=== PATIENT | female | born 1960 | race Caucasian/White ===

== ENCOUNTER 2019-04-27 20:16 | Emergency (ER) | payer BC ==
[~2019-04-27] VITALS: Ht 157.5 cm; Wt 104.3 kg
[2019-04-27 21:39] LABS: Basophils # (auto) 0.1 uL; Eosinophils # (auto) 0 uL; Lymphocytes # (auto) 0.6 uL; Monocytes # (auto) 0.8 uL; Red Cell Distribution Width 17.1 % (11.8-14.3)
[2019-04-27 21:41] LABS: Basophils % (auto) 0.7 % (0.0-2.0); Eosinophils % (auto) 0.2 % (0.0-7.0); Hematocrit 39.8 % (36.0-46.0); Mean Corpuscular Hemoglobin 26.1 pg (28.0-32.0); Mean Corpuscular Hgb Conc. 32.7 g/dL (32.0-36.0); Mean Corpuscular Volume 79.8 fL (80.0-100.0); Monocytes % (auto) 6.6 % (0.0-12.0); Neutrophils # (auto) 10.5 uL; Neutrophils % (auto) 87.5 % (37.0-80.0); Platelet Count (auto) 299 10^3/uL (140-450); Red Blood Cells 4.99 10^6/uL (4.0-5.20)
[2019-04-27 21:45] LABS: Urine Bacteria MANY /hpf (None Seen); Urine Blood 2+ /uL (Negative); Urine Mucus FEW (None Seen); Urine Specific Gravity 1.019 (1.001-1.035); Urine WBC 245 /hpf (0 - 5)
[2019-04-27 22:06] LABS: Alanine Aminotransferase 31 U/L (13-56); Albumin 3.2 g/dL (3.4-5.0); Anion Gap 8 (5-15); Aspartate Aminotransferase 21 U/L (15-37); BUN/Creatinine Ratio 16.7; Blood Urea Nitrogen 15 mg/dL (7-18); Calcium 8.7 mg/dL (8.5-10.1); Carbon Dioxide 22 mmol/L (21-32); Chloride 104 mmol/L (98-107); GFR African American 83 mL/min; GFR Non-African American 69 mL/min; Glucose 166 mg/dL (74-106); Potassium 3.8 mmol/L (3.5-5.1); Sodium 134 mmol/L (136-145)
[2019-04-27 22:10] LABS: Alkaline Phosphatase 100 U/L (45-117); Bilirubin, Total 0.5 mg/dL (0.2-1.0); Total Protein 7.6 g/dL (6.4-8.2)
[2019-04-27 23:30] LABS: Amylase 22 U/L (25-115); Lipase 58 U/L (73-393)
[2019-04-28 00:20] VITALS: BP 130/76
[2019-04-28] MEDS ORDERED: cefTRIAXone SOD 1,000 MG VL ONE (00:26)
[2019-04-28] MEDS ORDERED: cefTRIAXone SOD 1,000 MG VL IM ONE (00:30)
== END 2019-04-28 00:37 | disposition home or self-care (01) ==
LOC: ER 20:21
DX: N39.0 Urinary tract infection, site not specified (principal); K80.20 Calculus of gallbladder without cholecystitis without obstruction
CPT/HCPCS: 36415; 74176; 80053; 81001; 82150; 83690; 84484; 85025; 87086; 87088; 87186; 93005; 96372; 99284; J0696

== ENCOUNTER → 2020-02-11 | Outpatient (CLI) | payer BC | END | disposition home or self-care (01) | LOC: LAB 13:40 | PROVIDERS: ATTEND Obstetrics & Gynecology | DX: N84.1 Polyp of cervix uteri (principal); N85.00 Endometrial hyperplasia, unspecified ==

== ENCOUNTER 2020-10-08 06:57 | Day surgery (SDC) | payer BC ==
[~2020-10-08] VITALS: Ht 162.6 cm; Wt 65.8 kg
[~2020-10-08 06:57] MED LIST: NAPR375T27 PO
[2020-10-08] MEDS ORDERED: ceFAZolin 1GM/50ML 100 ML IV ONE (07:15)
[2020-10-08] MEDS ORDERED: MEPERIDINE HCL (25 MG/ML) 1ML VIAL ONE (08:14)
[2020-10-08] MEDS ORDERED: DexAMETHasone SOD PHOS 10MG/1ML VIAL INJ ONE (08:15)
[2020-10-08] MEDS ORDERED: fentaNYL CITRATE 100 MCG/2 ML VL ONE (08:15)
[2020-10-08] MEDS ORDERED: GLYCOPYRROLATE 0.2 MG/ML 1ML VIAL ONE (08:15)
[2020-10-08] MEDS ORDERED: PROPOFOL 10 MG/ML 20 ML IV ONE (08:15)
[2020-10-08] MEDS ORDERED: ONDANSETRON HCL 4 MG/2 ML VIAL ONE (08:15)
[2020-10-08] MEDS ORDERED: MIDAZOLAM HCL 2MG/2ML 2ml VIAL (1mg/ml) ONE (08:15)
[2020-10-08] MEDS ORDERED: KETOROLAC TROMETH 30 MG/ML 1ML VIAL ONE (08:15)
[2020-10-08] MEDS ORDERED: ePHEDrine SULFATE 50 MG/ML AMP IV ONE (08:28)
[2020-10-08] MEDS ORDERED: METOCLOPRAMIDE HCL 5MG/ml INJ 2ml VIAL IV ONE (08:28)
[2020-10-08] MEDS ORDERED: ONDANSETRON HCL 4 MG/2 ML VIAL IV PRN ×2 (09:15)
[2020-10-08] MEDS ORDERED: HYDROmorphone HCL 2 MG/ML VL IV PRN (09:15)
[2020-10-08] MEDS ORDERED: LACTATED RINGER'S 1,000 ML IV SCH (09:15)
[2020-10-08 09:40] VITALS: BP 122/57
== END 2020-10-08 10:00 | disposition home or self-care (01) ==
LOC: SUR 06:57
PROVIDERS: ATTEND Obstetrics & Gynecology
DX: N85.00 Endometrial hyperplasia, unspecified (principal); M19.90 Unspecified osteoarthritis, unspecified site; I10 Essential (primary) hypertension; Z20.822 Contact with and (suspected) exposure to COVID-19; Z98.890 Other specified postprocedural states; Z98.51 Tubal ligation status; Z79.899 Other long term (current) drug therapy; Z68.34 Body mass index [BMI] 34.0-34.9, adult
CPT/HCPCS: 58558; 86850; 86900; 86901; J0690; J1100; J1885; J2175; J2250; J2405; J2704; J2765; J3010; U0003

== ENCOUNTER 2020-11-25 06:57 | Emergency (ER) | payer BC ==
[~2020-11-25] VITALS: Ht 157.5 cm; Wt 111.1 kg
[2020-11-25] MEDS ORDERED: PIPERACILLIN-TAZOB 3.375GM 100 ML IV ONE (08:00)
[2020-11-25 08:40] LABS: Basophils # (auto) 0.2 10 ^3/uL (0-0.2); Basophils % (auto) 1.5 % (0.0-2.0); Eosinophils # (auto) 0.1 10 ^3/uL (0-0.8); Hematocrit 44.6 % (36.0-46.0); Hemoglobin 15.3 g/dL (12.2-16.2); Lymphocytes % (auto) 16.6 % (10.0-50.0); Mean Corpuscular Hemoglobin 29.3 pg (28.0-32.0); Mean Corpuscular Hgb Conc. 34.2 g/dL (32.0-36.0); Mean Corpuscular Volume 85.8 fL (80.0-100.0); Monocytes # (auto) 0.8 10 ^3/uL (0-1.3); Monocytes % (auto) 6.7 % (0.0-12.0); Neutrophils # (auto) 8.8 10 ^3/uL (1.6-8.6); Neutrophils % (auto) 74.2 % (37.0-80.0); Red Cell Distribution Width 14.8 % (11.8-14.3); White Blood Cell 11.9 10^3/uL (4.4-10.8)
[2020-11-25] MEDS ORDERED: KETOROLAC TROMETH 30 MG/ML 1ML VIAL IV ONE (09:00)
[2020-11-25 09:05] LABS: BUN/Creatinine Ratio 22.2; Calcium 8.5 mg/dL (8.5-10.1); Potassium 4.3 mmol/L (3.5-5.1)
[2020-11-25] MEDS ORDERED: IOHEXOL 300 MG/ML 100ML BOTTLE IJ ONE (09:39)
[2020-11-25] MEDS ORDERED: ONDANSETRON HCL 4 MG/2 ML VIAL IV ONE (12:45)
[2020-11-25] MEDS ORDERED: MORPHINE SULF INJ 2 MG/ML SYRINGE 1ML IV ONE ×2 (12:45→16:45)
[2020-11-25 16:38] VITALS: BP 161/77
== END 2020-11-25 17:13 | disposition short-term general hospital (02) ==
LOC: ER 06:57
DX: K11.21 Acute sialoadenitis (principal); K11.3 Abscess of salivary gland; Z90.89 Acquired absence of other organs; Z98.51 Tubal ligation status
CPT/HCPCS: 36415; 70487; 80048; 83605; 85025; 87040; 96365; 96366; 96375; 96376; 99285; J1885; J2270; J2405; J2543; Q9967

== ENCOUNTER 2025-02-17 07:11 | Inpatient (IN) | payer BC ==
[~2025-02-17] VITALS: Ht 157.5 cm; Wt 59.2 kg
[~2025-02-17 07:11] MED LIST changes: +CYCL-839 PO; +HYDR-4902 PO; +NAPR-957 PO; -NAPR375T27 PO
[2025-02-17 07:25] VITALS: PULSE 96; RESP 13; O2SAT 95
[2025-02-17] MEDS: SODIUM CHLORIDE 0.9% 1,000 ML IV ONE ×2 (07:45→08:09)
--- NOTE | 2025-02-17 07:45 | ED.PDOC ---
History of Present Illness HPI Comments 64F presents to the ER with no prior medical history associated with a chief complaint of generalized weakness. Patient reports on having had generalized weakness associated with body aches since of 02/12/2025. Patient has started to have cold sweats on Sunday and Sunday associated with nausea and vomiting on Sunday. Patient is still having continuous nausea and vomiting this morning which prompted her into going to the ER today. Denies any other symptoms at this time. Denies chills, fever, /D, SOB, CP. No other associated symptoms, modifiers, recent injuries or sick contacts present at this time. Chief Complaint: General Weakness Time Seen by MD: 07:45 Primary Care Provider: ADRIANNA Wang Notes: Nurses Notes, Medications, Allergies Allergies: Coded Allergies: NO KNOWN ALLERGIES (Unverified , 04/27/19) Home Meds Active Scripts Hydrocodone-Acetaminophen (Hydrocodone Bitartrate/AC 5-325 mg) 1 Tab Tab, 1 TAB PO Q6HPRN PRN, #10 TAB as needed for pain Prov:JONAS WINCHESTER [employer]YING [employer] ATTENDANT 07/19/23 Cyclobenzaprine Hcl (Cyclobenzaprine Hcl) 10 Mg Tab, 1 TAB PO Q8HPRN PRN, #15 TAB as needed for muscle spasm Prov:JONAS WINCHESTER [employer]YING [employer] ATTENDANT 07/19/23 Reported Medications Naproxen (Naproxen) 375 Mg Tab, 500 MG PO BID, TAB 10/05/20 Information Source: Patient Mode of Arrival: Wheelchair Severity: Moderate Timing: Days Duration: Since onset, Days Prehospital treatment: None Past Medical History PAST MEDICAL HISTORY: Denies Surgical History: Appendectomy, Tubal Ligation TRANSIT SPECIALIST History: Denies all TRANSIT SPECIALIST Hx Family History Family History: Reviewed,noncontributory to illness, Unknown Social History Smoker: Non-Smoker Alcohol: Denies ETOH Use Drugs: Denies Drug Use Lives In: Home Constitutional: reports: sweats, weakness; denies: chills, diaphoresis, fatigue, fever, malaise, others EENTM: denies: blurred vision, double vision, ear bleeding, ear discharge, ear drainage, ear pain, ear ringing, eye pain, eye redness, hearing loss, mouth pain, mouth swelling, nasal discharge, nose bleeding, nose congestion, nose pain, photophobia, tearing, throat pain, throat swelling, voice changes, others Respiratory: denies: cough, hemoptysis, orthopnea, SOB at rest, shortness of breath, SOB with excertion, stridor, wheezing, others Cardiovascular: denies: chest pain, dizzy spells, diaphoresis, Dyspnea on exertion, edema, irregular heart beat, left arm pain, lightheadedness, palpitations, PND, syncope, others Gastrointestinal: reports: nausea, vomiting; denies: abdomen distended, abdominal pain, blood streaked bowels, constipated, diarrhea, dysphagia, difficulty swallowing, hematemesis, melena, poor appetite, poor fluid intake, rectal bleeding, rectal pain, others Genitourinary: denies: abnormal vagina bleeding, burning, dyspareunia, dysuria, flank pain, frequency, hematuria, incontinence, pain, , vagina discharge, urgency, others Neurological: denies: dizziness, fainting, headache, left sided numbness, left sided weakness, numbness, paresthesia, pre-existing deficit, right sided numbn ess, right sided weakness, seizure, speech problems, tingling, tremors, weakness, others Musculoskeletal: denies: back pain, gout, joint pain, joint swelling, muscle pain, muscle stiffness, neck pain, others Integumetry: denies: bruises, change in color, change in hair/nails, dryness, laceration, lesions, lumps, rash, wounds, others Allergic/Immunocompromised: denies: Difficulty Healing, Frequent Infections, Hives, Itching, others Hematologic/Lymphatic: denies: anemia, blood clots, easy bleeding, easy bruising, swollen glands, others Endocrine: denies: excessive hunger, excessive sweating, excessive thirst, excessive urination, flushing, intolerance to cold, intolerance to heat, unexplained weight gain, unexplained weight loss, others Psychiatric: denies: anxiety, bipolar disorder, depression, hopeless, panic disorder, schizophrenia, sleepless, suicidal, others All Other Systems: Reviewed and Negative Physical Exam General Appearance: Moderate Distress, Normal HEENT: Normal ENT Inspection, Pharynx Normal, TMs Normal Neck: Full Range of Motion, Non-Tender, Normal, Normal Inspection Respiratory: Chest Non-Tender, Lungs Clear, No Accessory Muscle Use, No Respiratory Distress, Normal Breath Sounds Cardiovascular: No Edema, No JVD, No Murmur, No Gallop, Normal Peripheral Pulses, Regular Rate/Rhythm Breast Exam: Deferred Gastrointestinal: No Organomegaly, Non Tender, No Pulsatile Mass, Normal Bowel Sounds, Soft Genitalia: Deferred Pelvic: Deferred Rectal: Deferred Extremities: No calf tenderness, Normal capillary refill, Normal inspection, Normal range of motion, Non-tender, No pedal edema Musculoskeletal : Apperance: Normal Neurologic: Alert, internal salesperson II-XII nml as Tested, No Motor Deficits, Normal Affect, Normal Mood, No Sensory Deficits Cerebellar Function: Normal Reflexes: NOT DONE Skin: Dry, Normal Color, Warm Peripheral Pulses: 3+ Radial (R), 3+ Radial (L) Lymphatic: No Adenopathy Was a procedure done? Was a procedure done?: No EKG EKG : Pulse Rate (adult): 92 [place]: Normal Cardiac Rhythm: NSR Block: None Hypertrophy: None ST: Normal Differential Dx Considerations may include: Anemia Electrolyte imbalance X-Ray, Labs, Meds, VS Vital Signs Date Time Temp Pulse Resp B/P (MAP) Pulse Ox O2 Delivery O2 Flow Rate FiO2 02/17/25 12:00 88 02/17/25 12:00 98.1 90 12 111/62 (78) 96 98.1 02/17/25 10:00 99.4 91 19 100/59 (73) 96 99.4 02/17/25 08:00 92 02/17/25 08:00 99.5 93 19 123/65 (84) 96 99.5 02/17/25 07:45 92 02/17/25 07:28 92 02/17/25 07:25 96 13 95 Room Air* 0 21 02/17/25 07:25 99.5 96 19 119/64 (82) 96 99.5 02/17/25 07:17 97.7 120 17 110/70 95 97.7 Lab Test 02/17/25 08:35 02/17/25 07:44 02/17/25 07:36 02/17/25 07:25 Range/Units Influenza Type A Antigen Negative Negative Influenza Type B Antigen Negative Negative SARS-CoV-2 Antigen (Rapid) Negative NEGATIVE White Blood Count 4.7 4.4-10.8 10^3/uL Red Blood Count 5.09 4.0-5.20 10^6/uL Hemoglobin 15.5 12.2-16.2 g/dL Hematocrit 44.6 36.0-46.0 % Mean Corpuscular Volume 87.6 80.0-100.0 fL Mean Corpuscular Hemoglobin 30.5 28.0-32.0 pg Mean Corpuscular Hemoglobin Concent 34.8 32.0-36.0 g/dL Red Cell Distribution Width 13.2 11.8-14.3 % Platelet Count 204 140-450 10^3/uL Mean Platelet Volume 6.8 L 6.9-10.8 fL Neutrophils (%) (Auto) 92.4 H 37.0-80.0 % Lymphocytes (%) (Auto) 6.7 L 10.0-50.0 % Monocytes (%) (Auto) 0.5 0.0-12.0 % Eosinophils (%) (Auto) 0.1 0.0-7.0 % Basophils (%) (Auto) 0.3 0.0-2.0 % Neutrophils # (Auto) 4.4 1.6-8.6 10 ^3/uL Lymphocytes # (Auto) 0.3 L 0.4-5.4 10 ^3/uL Monocytes # (Auto) 0 0-1.3 10 ^3/uL Eosinophils # (Auto) 0 0-0.8 10 ^3/uL Basophils # (Auto) 0 0-0.2 10 ^3/uL Nucleated Red Blood Cells 0.0 % Sodium Level 142 136-145 mmol/L Potassium Level 3.9 3.5-5.1 mmol/L Chloride Level 103 98-107 mmol/L Carbon Dioxide Level 28 20-31 mmol/L Anion Gap 11 5-15 Blood Urea Nitrogen 12 9-23 mg/dL Creatinine 1.00 0.550-1.02 mg/dL Glomerular Filtration Rate Calc 63 >90 mL/min BUN/Creatinine Ratio 12.0 10.0-20.0 Serum Glucose 109 H 74-106 mg/dL Calcium Level 9.2 8.7-10.4 mg/dL Total Bilirubin 0.8 0.2-1.0 mg/dL Aspartate Amino Transferase (AST) 71 H 13-40 U/L Alanine Aminotransferase (ALT) 43 H 7-40 U/L Alkaline Phosphatase 92 46-116 U/L Troponin I High Sensitivity 4 </=34 ng/L Total Protein 6.8 5.7-8.2 g/dL Albumin 4.2 3.2-4.8 g/dL Hepatitis B Surface Antigen Pending Hepatitis C Antibody Pending Urine Color Colorless Yellow Urine Clarity Turbid H Clear Urine pH 5.5 5.0-9.0 Urine Specific [place] 1.013 1.001-1.035 Urine Protein Trace H Negative Urine Ketones 1+ H Negative Urine Blood 3+ H Negative /uL Urine Nitrite 2+ H Negative Urine Bilirubin Negative Negative Urine Urobilinogen Normal Negative mg/dL Urine Leukocyte Esterase Negative Negative /uL Urine RBC 802 0 - 4 /hpf Urine Microscopic WBC 16 H 0-5 /HPF Urine Squamous Epithelial Cells Few <5 /hpf Urine Bacteria Few H None Seen /hpf Urine Mucus Few None Seen Urine Yeast (Budding) Occasional None Seen /hpf Urine Glucose Normal Normal mg/dL POC Glucose 130 H 70-106 mg/dl Current Medications Medications (Trade) Dose Ordered Sig/Lesvia Route Start Time Stop Time Status Last Admin Sodium Chloride 1,000 ml @ 1,000 mls/hr Q1H ONCE IV 02/17/25 07:45 02/17/25 08:44 DC 02/17/25 07:45 Acetaminophen/ Hydrocodone Bitart ([place] 10/325MG Tab) 1 tab ONCE ONCE PO 02/17/25 08:45 02/17/25 08:46 DC 02/17/25 08:51 Trimethoprim/ Sulfamethoxazole 10 ml/Dextrose 260 ml @ 130 mls/hr ONCE ONCE IV 02/17/25 10:45 02/17/25 12:53 DC 02/17/25 10:45 PROCEDURE(s): CXRP - CHEST PORTABLE IMPRESSION: No acute cardiopulmonary disease. Patient alert. Generalized weakness. Vitals stable. Answering questions. Blood sugar slightly elevated. Establish intravenous access. Was given fluids. Urinalysis shows UTI. Has blood along with infection. Was given Bactrim. Explained to the patient. Continue monitoring. Time of 1ST Reevaluation: 08:15 Reevaluation 1ST: Unchanged Patient Education/Counseling: Diagnosis, Treatment, Prognosis Family Education/Counseling: No Family Present SEPSIS Sepsis Screen Date sepsis recognized/suspect: Feb 17, 2025 Time Sepsis recognized/suspect: 716 Recent Procedure: No On Antibiotic Therapy: No Respiratory Rate >20: No Heart Rate >90: Yes Temp<36 C (96.8 F) or >38.3 C: No SBP <90 or MAP <65 mmHG: No New Acute Mental Status Change: No Is the patient on CPAP, BIPAP,: No Physician Orders Chest Portable (02/17/25 07:36) Yarn Twister (02/17/25 ) Vital Signs Date Time Temp Pulse Resp B/P (MAP) Pulse Ox O2 Delivery O2 Flow Rate FiO2 02/17/25 12:00 88 02/17/25 12:00 98.1 90 12 111/62 (78) 96 98.1 02/17/25 10:00 99.4 91 19 100/59 (73) 96 99.4 02/17/25 08:00 92 02/17/25 08:00 99.5 93 19 123/65 (84) 96 99.5 02/17/25 07:45 92 02/17/25 07:28 92 02/17/25 07:25 96 13 95 Room Air* 0 21 02/17/25 07:25 99.5 96 19 119/64 (82) 96 99.5 02/17/25 07:17 97.7 120 17 110/70 95 97.7 Laboratory Tests Test 02/17/25 07:44 White Blood Count 4.7 10^3/uL (4.4-10.8) Medications Medications Dose Ordered Sig/Lesvia Route Start Time Stop Time Status Last Admin Dose Admin Acetaminophen/ Hydrocodone Bitart 1 tab ONCE ONCE PO 02/17/25 08:45 02/17/25 08:46 DC 02/17/25 08:51 Sodium Chloride 1,000 ml @ 1,000 mls/hr Q1H ONCE IV 02/17/25 07:45 02/17/25 08:44 DC 02/17/25 07:45 Trimethoprim/ Sulfamethoxazole 10 ml/Dextrose 260 ml @ 130 mls/hr ONCE ONCE IV 02/17/25 10:45 02/17/25 12:53 DC 02/17/25 10:45 Departure 1 Departure Time of Disposition: 08:08 Impression: Primary Impression: Sepsis due to urinary tract infection Disposition: ADMITTED INPATIENT Admit to: Med Surg Condition: Guarded Critical Care Note Critical Care Time?: No Stability Stability form required: No Heart Score Heart Score: Heart Score Response (Comments) Value History N/A 0 EKG N/A 0 Age N/A 0 Risk Factors N/A 0 Troponin N/A 0 Total 0 I personally scribed for RAFAEL GAUTAM MD ([email or web address]) on 02/17/25 at 07:45. Electronically submitted by Reyes Monroy ([email or web address]). I personally scribed for RAFAEL GAUTAM MD ([email or web address]) on 02/17/25 at 11:02. Electronically submitted by Eddie Corrales ([email or web address]). RAFAEL GAUTAM MD Feb 17, 2025 07:45
[2025-02-17 08:03] LABS: Hematocrit 44.6 % (36.0-46.0); Hemoglobin 15.5 g/dL (12.2-16.2); Mean Corpuscular Hemoglobin 30.5 pg (28.0-32.0); Mean Corpuscular Volume 87.6 fL (80.0-100.0); Nucleated Red Blood Cells % 0.0 %
[2025-02-17 08:17] LABS: Albumin 4.2 g/dL (3.2-4.8); Alkaline Phosphatase 92 U/L (46-116); Anion Gap 11 (5-15); BUN/Creatinine Ratio 12.0 (10.0-20.0); Bilirubin, Total 0.8 mg/dL (0.2-1.0); Blood Urea Nitrogen 12 mg/dL (9-23); Calcium 9.2 mg/dL (8.7-10.4); Carbon Dioxide 28 mmol/L (20-31); Chloride 103 mmol/L (98-107); Potassium 3.9 mmol/L (3.5-5.1); Sodium 142 mmol/L (136-145); Total Protein 6.8 g/dL (5.7-8.2)
[2025-02-17 08:18] LABS: Alanine Aminotransferase 43 U/L (7-40); Glucose 109 mg/dL (74-106)
--- NOTE | 2025-02-17 08:19 | DVH ---
EXAM: XY CHEST PORTABLE Indication: sob Technique: Single frontal view of the chest was obtained Comparison: None FINDINGS: Lines and Tubes: None Lungs: No focal consolidation. Pleura: No effusion. No pneumothorax. Cardiomediastinal contours: Unremarkable. Atherosclerotic vascular calcifications of the thoracic ao rta are noted. Bones: No acute osseous abnormality. IMPRESSION: No acute cardiopulmonary disease.
[2025-02-17] MEDS: HYDROcodone-ACET 10/325MG TAB PO ONE (08:51)
[2025-02-17 10:28] LABS: Urine Budding Yeast OCCASIONAL /hpf (None Seen); Urine Protein, UAD TRACE (Negative)
[2025-02-17 10:35] LABS: COVID19 ANTIGEN SOFIA FIA NEGATIVE (NEGATIVE)
[2025-02-17] MEDS: SULFAMETH-TRIMETH 80/16MG-ML 10 ML in D5W 5% 250 ML IV ONE (10:45)
[2025-02-17] MEDS ORDERED: DOCUSATE SOD 100 MG CAP PO PRN (13:00)
--- NOTE | 2025-02-17 13:48 | ECG ---
[facility] Test Date: 2025-02-17 Test Time: 07:28:46 Pat Name: VIANCA CRUZ Department: [facility] ED Patient ID: [id number] Room: 0293 Gender: F [employer]: MADHAV : 1960 Requested By: RAFAEL GAUTAM Order Number: [id number] Reading MD: Saurav Faith Measurements Intervals [place] Rate: 92 P: 46 [place]: 161 QRS: 96 QRSD: 100 T: 47 QT: 344 QTc: 426 Interpretive Statements Sinus rhythm Right axis deviation Borderline low voltage, extremity leads Electronically Signed On 02-24-2025 13:16:28 PST by Saurav Faith Please click the below link to view image of tracing.
--- NOTE | 2025-02-17 14:01 | DVHHP2 ---
History of Present Illness Reason for Visit: Generalized weakness History of Present Illness Kiara Perez is a 64-year-old female with past medical history of hypertension, but has been off medication for years since losing 150 pounds. She came to the hospital today due to generalized weakness. States she started not feeling well on evening. She was experiencing body aches and chills. She called off work on Sunday. Over the weekend her symptoms continued and worsened. She began to have fevers and on Sunday she was nauseated and vomited once. Sunday she attempted to go to work but her nausea and vomiting worsened and she was having bilateral low back pain. This morning she came to the hospital due to her symptoms persisting. Cardiovascular: HTN Past Surgical History: Appendectomy, Other (DNC), Tonsillectomy Smoke: No ALCOHOL: rare Drugs: None Lives: with Family Domestic Violence: Neg Review of Systems Constitutional: Yes: Fever, Chills, Sweats, Weakness, Malaise, Other (bodyaches) Eyes: No: Pain, Vision change, Conjunctivae inflammation, Eyelid inflammation, Other, Redness ENT: No: Ear pain, Ear discharge, Nose pain, Nose discharge, Nose congestion, Mouth pain, Mouth swelling, Throat pain, Throat swelling, Other Respiratory: No: Cough, Dry, Shortness of breath, SOB with excertion, Wheezing, Hemoptysis, Pleuritic Pain, Sputum, Wheezing, Other Cardiovascular: No: Chest Pain, Palpitations, Orthopnea, Paroxysmal Noc. Dyspnea, Edema, Lt Headedness, Other Gastrointestinal: Nausea, Vomiting; No: Abdominal Pain, Diarrhea, Constipation, Melena, Hematochezia, Other Genitourinary: No Dysuria, No Frequency, No Incontinence, No Hematuria, No Retention, No Other Musculoskeletal: back pain (bilateral flank pain); No: other, neck pain, shoulder pain, arm pain, hand pain, leg pain, foot pain Skin: No: Rash, Lesions, Jaundice, Bruising, Other Neurological: No: Weakness, Numbness, Incoordination, Change in speech, Confusion, Seizures, Other Allergies: Coded Allergies: NO KNOWN ALLERGIES (Unverified , 04/27/19) Exam Vital Signs Vital Signs Date Time Temp Pulse Resp B/P (MAP) Pulse Ox O2 Delivery O2 Flow Rate FiO2 02/17/25 12:00 88 02/17/25 12:00 98.1 12 111/62 (78) 96 98.1 02/17/25 07:25 Room Air* 0 21 General Appearance: Alert, Oriented X3, Cooperative, moderate distress HEENT: Atraumatic, PERRLA, Other (Mucous membr dry) Respiratory: Clear to auscultation, Normal air movement Cardiovascular: Regular rate, Normal S1, Normal S2, No murmurs Abdominal: Normal bowel sounds, Soft, No tenderness Extremities: No clubbing, No cyanosis, No edema, Normal pulses Skin: No rashes, No breakdown, No significant lesion Neuro: Normal gait, Normal speech, Strength at 5/5 X4 ext Psych/Mental Status: Mental status NL, Mood NL Labs/Xrays Labs Test 02/17/25 08:35 02/17/25 07:44 02/17/25 07:36 02/17/25 07:25 Range/Units Influenza Type A Antigen Negative Negative Influenza Type B Antigen Negative Negative SARS-CoV-2 Antigen (Rapid) Negative NEGATIVE White Blood Count 4.7 4.4-10.8 10^3/uL Red Blood Count 5.09 4.0-5.20 10^6/uL Hemoglobin 15.5 12.2-16.2 g/dL Hematocrit 44.6 36.0-46.0 % Mean Corpuscular Volume 87.6 80.0-100.0 fL Mean Corpuscular Hemoglobin 30.5 28.0-32.0 pg Mean Corpuscular Hemoglobin Concent 34.8 32.0-36.0 g/dL Red Cell Distribution Width 13.2 11.8-14.3 % Platelet Count 204 140-450 10^3/uL Mean Platelet Volume 6.8 L 6.9-10.8 fL Neutrophils (%) (Auto) 92.4 H 37.0-80.0 % Lymphocytes (%) (Auto) 6.7 L 10.0-50.0 % Monocytes (%) (Auto) 0.5 0.0-12.0 % Eosinophils (%) (Auto) 0.1 0.0-7.0 % Basophils (%) (Auto) 0.3 0.0-2.0 % Neutrophils # (Auto) 4.4 1.6-8.6 10 ^3/uL Lymphocytes # (Auto) 0.3 L 0.4-5.4 10 ^3/uL Monocytes # (Auto) 0 0-1.3 10 ^3/uL Eosinophils # (Auto) 0 0-0.8 10 ^3/uL Basophils # (Auto) 0 0-0.2 10 ^3/uL Nucleated Red Blood Cells 0.0 % Sodium Level 142 136-145 mmol/L Potassium Level 3.9 3.5-5.1 mmol/L Chloride Level 103 98-107 mmol/L Carbon Dioxide Level 28 20-31 mmol/L Anion Gap 11 5-15 Blood Urea Nitrogen 12 9-23 mg/dL Creatinine 1.00 0.550-1.02 mg/dL Glomerular Filtration Rate Calc 63 >90 mL/min BUN/Creatinine Ratio 12.0 10.0-20.0 Serum Glucose 109 H 74-106 mg/dL Calcium Level 9.2 8.7-10.4 mg/dL Total Bilirubin 0.8 0.2-1.0 mg/dL Aspartate Amino Transferase (AST) 71 H 13-40 U/L Alanine Aminotransferase (ALT) 43 H 7-40 U/L Alkaline Phosphatase 92 46-116 U/L Troponin I High Sensitivity 4 </=34 ng/L Total Protein 6.8 5.7-8.2 g/dL Albumin 4.2 3.2-4.8 g/dL Urine Color Colorless Yellow Urine Clarity Turbid H Clear Urine pH 5.5 5.0-9.0 Urine Specific [place] 1.013 1.001-1.035 Urine Protein Trace H Negative Urine Ketones 1+ H Negative Urine Blood 3+ H Negative /uL Urine Nitrite 2+ H Negative Urine Bilirubin Negative Negative Urine Urobilinogen Normal Negative mg/dL Urine Leukocyte Esterase Negative Negative /uL Urine RBC 802 0 - 4 /hpf Urine Microscopic WBC 16 H 0-5 /HPF Urine Squamous Epithelial Cells Few <5 /hpf Urine Bacteria Few H None Seen /hpf Urine Mucus Few None Seen Urine Yeast (Budding) Occasional None Seen /hpf Urine Glucose Normal Normal mg/dL POC Glucose 130 H 70-106 mg/dl EXAM: XY CHEST PORTABLE FINDINGS: Lines and Tubes: None Lungs: No focal consolidation. Pleura: No effusion. No pneumothorax. Cardiomediastinal contours: Unremarkable. Atherosclerotic vascular calcifications of the thoracic aorta are noted. Bones: No acute osseous abnormality. IMPRESSION: No acute cardiopulmonary disease. SEPSIS Sepsis Screen Date sepsis recognized/suspect: Feb 17, 2025 Time Sepsis recognized/suspect: 729 Recent Procedure: No On Antibiotic Therapy: No Respiratory Rate >20: No Heart Rate >90: No Temp<36 C (96.8 F) or >38.3 C: No SBP <90 or MAP <65 mmHG: No New Acute Mental Status Change: No Is the patient on CPAP, BIPAP,: No Physician Orders Electrocardigram (02/17/25 07:33) Chest Portable (02/17/25 07:36) Excelsior Picker (02/17/25 ) Admit (02/17/25 12:56) Code Status (02/17/25 12:56) 2 Gm Sodium Diet (02/17/25 Lunch) Hydrocodone-Acet 5/325mg Tab ([facility] 5/32 (02/17/25 13:00) Ondansetron Hcl (Zofran) (02/17/25 13:00) Docusate Sodium Capsule (Colace Capsule) (02/17/25 13:00) Complete Blood Count (02/18/25 04:00) Comprehensive Metabolic Panel (02/18/25 04:00) Condition: Serious (02/17/25 12:56) Acetaminophen Tablet (Tylenol Tablet) (02/17/25 13:00) Ceftriaxone Ivpb Rocephin (02/18/25 09:00) Vital Signs Date Time Temp Pulse Resp B/P (MAP) Pulse Ox O2 Delivery O2 Flow Rate FiO2 02/17/25 12:00 88 02/17/25 12:00 98.1 90 12 111/62 (78) 96 98.1 02/17/25 10:00 99.4 91 19 100/59 (73) 96 99.4 02/17/25 08:00 92 02/17/25 08:00 99.5 93 19 123/65 (84) 96 99.5 02/17/25 07:45 92 02/17/25 07:28 92 02/17/25 07:25 96 13 95 Room Air* 0 21 02/17/25 07:25 99.5 96 19 119/64 (82) 96 99.5 02/17/25 07:17 97.7 120 17 110/70 95 97.7 Laboratory Tests Test 02/17/25 07:44 White Blood Count 4.7 10^3/uL (4.4-10.8) Medications Medications Dose Ordered Sig/Lesvia Route Start Time Stop Time Status Last Admin Dose Admin Acetaminophen/ Hydrocodone Bitart 1 tab ONCE ONCE PO 02/17/25 08:45 02/17/25 08:46 DC 02/17/25 08:51 1 TAB Sodium Chloride 1,000 ml @ 1,000 mls/hr Q1H ONCE IV 02/17/25 07:45 02/17/25 08:44 DC 02/17/25 07:45 1,000 MLS/HR Trimethoprim/ Sulfamethoxazole 10 ml/Dextrose 260 ml @ 130 mls/hr ONCE ONCE IV 02/17/25 10:45 02/17/25 12:53 DC 02/17/25 10:45 130 MLS/HR Assessment/Plan Assessment/Plan Assessment: complicated UTI, Possible sepsis due to urinary tract infection, Possible pyelonephritis, Plan: Admit to Med-Surg, Urine culture, IV antibiotics, IV hydration, Antiemetics, Plan discussed with: Patient My Orders Orders - SUMI LEBLANC Procedure Category Date Status Time Admit ADMIT 02/17/25 Transmitted 12:56 Code Status CODE 02/17/25 Transmitted 12:56 2 Gm Sodium Diet DIET 02/17/25 Transmitted Lunch Hydrocodone-Acet PHA 02/17/25 Transmitted 5/325mg Tab ([facility] 13:00 Ondansetron Hcl PHA 02/17/25 Transmitted (Zofran) 13:00 Docusate Sodium PHA 02/17/25 Transmitted Capsule (Colace 13:00 Complete Blood Count LAB 02/18/25 Verified 04:00 Comprehensive LAB 02/18/25 Verified Metabolic Panel 04:00 Condition: Serious FAUSTINA 02/17/25 Transmitted 12:56 Acetaminophen Tablet PHA 02/17/25 Transmitted (Tylenol Tablet) 13:00 Ceftriaxone Ivpb PHA 02/18/25 Transmitted Rocephin 09:00 Date of Service: Feb 17, 2025 Billing Provider: SUMI LEBLANC Common Visit Codes: [id number] INP/OBS CARE (MOD) SUMI LEBLANC Feb 17, 2025 14:01
[2025-02-17] MEDS: HYDROcodone-ACET 5/325MG TAB PO PRN (15:26)
[2025-02-17] MEDS: ACETAMINOPHEN 325 MG TAB PO PRN (16:53)
[2025-02-17 17:00] VITALS: BP 100/63; PULSE 80; RESP 17; TEMP 98; O2SAT 95
[2025-02-17] MEDS: METOCLOPRAMIDE HCL 5MG/ml INJ 2ml VIAL IV SCH (18:00)
[2025-02-17 19:52] LABS: Lactic Acid w/Reflex 2.7 mmol/L (0.4-2.0)
[2025-02-17 21:00] VITALS: BP 93/56; PULSE 80; RESP 17; TEMP 98.4; O2SAT 100
[2025-02-18 01:00] VITALS: BP 102/57; PULSE 68; RESP 17; TEMP 97.7; O2SAT 94
[2025-02-18 05:00] VITALS: BP 103/58; PULSE 73; RESP 17; TEMP 97.6; O2SAT 95
[2025-02-18 06:27] LABS: Hematocrit 39.2 % (36.0-46.0); Hemoglobin 13.4 g/dL (12.2-16.2); Mean Corpuscular Hemoglobin 30.2 pg (28.0-32.0); Mean Corpuscular Volume 88.2 fL (80.0-100.0); Nucleated Red Blood Cells % 0.0 %
[2025-02-18 06:56] LABS: Alanine Aminotransferase 39 U/L (7-40); Albumin 3.8 g/dL (3.2-4.8); Alkaline Phosphatase 75 U/L (46-116); Anion Gap 10 (5-15); BUN/Creatinine Ratio 13.1 (10.0-20.0); Bilirubin, Total 0.4 mg/dL (0.2-1.0); Blood Urea Nitrogen 11 mg/dL (9-23); Calcium 8.7 mg/dL (8.7-10.4); Carbon Dioxide 26 mmol/L (20-31); Chloride 103 mmol/L (98-107); Glucose 82 mg/dL (74-106); Potassium 3.7 mmol/L (3.5-5.1); Sodium 139 mmol/L (136-145); Total Protein 6.3 g/dL (5.7-8.2)
[2025-02-18 09:00] VITALS: BP 109/79; PULSE 79; RESP 18; TEMP 98; O2SAT 99
[2025-02-18 10:09] LABS: Hepatitis B Surface Antigen Negative (Negative)
[2025-02-18 10:31] LABS: Hepatitis C Antibody Negative (Negative)
[2025-02-18 13:00] VITALS: BP 111/66; PULSE 87; RESP 16; TEMP 97.5; O2SAT 96
--- NOTE | 2025-02-18 13:14 | DVHPN2 ---
Reviewed: Care Plan, H&P, Labs, Medications, Previous Orders, Radiology Eyes: No Pain, No Vision change, No Conjunctivae inflammation, No Eyelid inflammation, No Other, No Redness ENT: No Ear pain, No Ear discharge, No Nose pain, No Nose discharge, No Nose congestion, No Mouth pain, No Mouth swelling, No Throat pain, No Throat swelling, No Other Cardiovascular: No Chest Pain, No Palpitations, No Orthopnea, No Paroxysmal Noc. Dyspnea, No Edema, No Lt Headedness, No Other Respiratory: No Cough, No Dry, No Shortness of breath, No SOB with excertion, No Wheezing, No Hemoptysis, No Pleuritic Pain, No Sputum, No Other Gastrointestinal: Nausea, Vomiting; No Abdominal Pain, No Diarrhea, No Constipation, No Melena, No Hematochezia, No Other Genitourinary: No Dysuria, No Frequency, No Incontinence, No Hematuria, No Retention, No Other Musculoskeletal: No other, No neck pain, No shoulder pain, No arm pain; back pain (bilateral flank pain); No hand pain, No leg pain, No foot pain Skin: No Rash, No Lesions, No Jaundice, No Bruising, No Other Objective Vitals Vital Signs Date Time Temp Pulse Resp B/P (MAP) Pulse Ox O2 Delivery O2 Flow Rate FiO2 02/18/25 08:00 Room Air* 0 21 02/18/25 05:00 97.6 73 17 103/58 (73) 95 97.6 Intake/Output Intake and Output 02/18/25 07:00 Intake Total 1200 ml Balance 1200 ml Intake Oral 1200 ml # Voids 6 # Bowel Movements 2 Medications Current Medications Medications Dose Ordered Sig/Lesvia Route Start Time Stop Time Status Last Admin Dose Admin Acetaminophen/ Hydrocodone Bitart 1 tab Q4HP PRN PO 02/17/25 13:00 02/18/25 09:15 1 TAB Ondansetron HCl 4 mg Q4HP PRN IV 02/17/25 13:00 Docusate Sodium 100 mg BIDPRN PRN PO 02/17/25 13:00 Acetaminophen 650 mg Q6HP PRN PO 02/17/25 13:00 02/18/25 06:14 650 MG Ceftriaxone Sodium 50 ml @ 100 mls/hr DAILY@09 IV 02/18/25 09:00 02/18/25 09:15 100 MLS/HR Metoclopramide HCl 10 mg Q6HR IV 02/17/25 18:00 Laboratory Results Laboratory Tests 02/18/25 05:23 Chemistry Test 02/18/25 05:23 Albumin 3.8 g/dL (3.2-4.8) Calcium Level 8.7 mg/dL (8.7-10.4) Total Protein 6.3 g/dL (5.7-8.2) LFT Test 02/18/25 05:23 Alanine Aminotransferase (ALT) 39 U/L (7-40) Alkaline Phosphatase 75 U/L (46-116) Aspartate Amino Transferase (AST) 36 U/L (13-40) Total Bilirubin 0.4 mg/dL (0.2-1.0) Urinalysis Test 02/17/25 07:36 Urine Color Colorless (Yellow) Urine Clarity Turbid (Clear) H Urine pH 5.5 (5.0-9.0) Urine Specific [place] 1.013 (1.001-1.035) Urine Protein Trace (Negative) H Urine Ketones 1+ (Negative) H Urine Blood 3+ /uL (Negative) H Urine Nitrite 2+ (Negative) H Urine Bilirubin Negative (Negative) Urine Urobilinogen Normal mg/dL (Negative) Urine Leukocyte Esterase Negative /uL (Negative) Urine RBC 802 /hpf (0 - 4) Urine Microscopic WBC 16 /HPF (0-5) H Urine Squamous Epithelial Cells Few /hpf (<5) Urine Bacteria Few /hpf (None Seen) H Urine Mucus Few (None Seen) Urine Yeast (Budding) Occasional /hpf (None Urine Glucose Normal mg/dL (Normal) Microbiology Microbiology Date/Time Source Procedure Growth Status 02/17/25 07:36 Voided Urine Urine Culture - Preliminary Resulted Labs and/or images reviewed: Labs reviewed by me, Image(s) reviewed by me Assessment/Plan Assessment/Plan Sepsis secondary to complicated UTI: Blood cultures urine cultures Complicated UTI: Rocephin Possible acute pyelonephritis Hypertension Acute dehydration: IV fluids Plan discussed with: Patient My Orders Orders - RUBENS CARIAS MD Procedure Category Date Status Time Blood Culture SERVANDO 02/18/25 Transmitted 12:58 RUBENS CARIAS MD Feb 18, 2025 13:14
[2025-02-18] MEDS: SODIUM CHLORIDE 0.9% 1,000 ML IV SCH (14:03)
[2025-02-18 17:00] VITALS: BP 110/74; PULSE 83; RESP 16; TEMP 98; O2SAT 96
[2025-02-18 21:00] VITALS: BP 104/59; PULSE 82; RESP 18; TEMP 98.2; O2SAT 96
[2025-02-19 05:00] VITALS: BP 100/62; PULSE 76; RESP 17; TEMP 97.6; O2SAT 95
[2025-02-19 06:54] LABS: Hematocrit 36.7 % (36.0-46.0); Hemoglobin 12.8 g/dL (12.2-16.2); Mean Corpuscular Hemoglobin 30.5 pg (28.0-32.0); Mean Corpuscular Volume 87.7 fL (80.0-100.0); Nucleated Red Blood Cells % 0.0 %
[2025-02-19 07:05] LABS: Albumin 3.3 g/dL (3.2-4.8); Alkaline Phosphatase 109 U/L (46-116); Anion Gap 10 (5-15); BUN/Creatinine Ratio 14.9 (10.0-20.0); Blood Urea Nitrogen 10 mg/dL (9-23); Carbon Dioxide 25 mmol/L (20-31); Glucose 77 mg/dL (74-106); Potassium 3.8 mmol/L (3.5-5.1); Sodium 144 mmol/L (136-145)
[2025-02-19 07:08] LABS: Alanine Aminotransferase 112 U/L (7-40); Bilirubin, Total 0.3 mg/dL (0.2-1.0); Calcium 8.6 mg/dL (8.7-10.4); Chloride 109 mmol/L (98-107); Total Protein 5.6 g/dL (5.7-8.2)
[2025-02-19] MEDS ORDERED: TAMSULOSIN HYDROCHLORIDE 0.4 MG CAP PO ONE (08:45)
[2025-02-19 09:00] VITALS: BP 114/69; PULSE 78; RESP 16; TEMP 98.1; O2SAT 98
[2025-02-19] MEDS: ONDANSETRON HCL 4 MG/2 ML VIAL IV PRN (10:10)
[2025-02-19 12:56] VITALS: BP 115/74; PULSE 72; RESP 16; TEMP 97.8; O2SAT 97
[2025-02-19 17:00] VITALS: BP 122/75; PULSE 78; RESP 16; TEMP 98.4; O2SAT 97
[2025-02-19 21:00] VITALS: BP 116/70; PULSE 73; RESP 18; TEMP 98.3; O2SAT 94
[2025-02-19] MEDS: KETOROLAC TROMETH 30 MG/ML 1ML VIAL IV ONE (21:17)
[2025-02-20 05:00] VITALS: BP 124/65; PULSE 64; RESP 18; TEMP 98.1; O2SAT 96
[2025-02-20 07:07] LABS: Hematocrit 39.2 % (36.0-46.0); Hemoglobin 13.6 g/dL (12.2-16.2); Mean Corpuscular Hemoglobin 30.4 pg (28.0-32.0); Mean Corpuscular Volume 87.3 fL (80.0-100.0); Nucleated Red Blood Cells % 0.0 %
[2025-02-20 07:23] LABS: Alkaline Phosphatase 107 U/L (46-116); Anion Gap 8 (5-15); BUN/Creatinine Ratio 12.9 (10.0-20.0); Calcium 9.0 mg/dL (8.7-10.4); Carbon Dioxide 27 mmol/L (20-31); Glucose 76 mg/dL (74-106); Potassium 4.0 mmol/L (3.5-5.1); Sodium 144 mmol/L (136-145); Total Protein 5.7 g/dL (5.7-8.2)
[2025-02-20 07:24] LABS: Albumin 3.6 g/dL (3.2-4.8); Bilirubin, Total 0.3 mg/dL (0.2-1.0)
[2025-02-20 07:39] LABS: Alanine Aminotransferase 79 U/L (7-40); Blood Urea Nitrogen 8 mg/dL (9-23); Chloride 109 mmol/L (98-107)
[2025-02-20 09:05] VITALS: BP 142/88; PULSE 78; RESP 16; TEMP 98.2; O2SAT 97
--- NOTE | 2025-02-20 11:05 | DVHPN2 ---
Reviewed: Care Plan, H&P, Labs, Medications, Previous Orders, Radiology Changes from previous H/P or p: No Changes Eyes: No Pain, No Vision change, No Conjunctivae inflammation, No Eyelid inflammation, No Other, No Redness ENT: No Ear pain, No Ear discharge, No Nose pain, No Nose discharge, No Nose congestion, No Mouth pain, No Mouth swelling, No Throat pain, No Throat swelling, No Other Cardiovascular: No Chest Pain, No Palpitations, No Orthopnea, No Paroxysmal Noc. Dyspnea, No Edema, No Lt Headedness, No Other Respiratory: No Cough, No Dry, No Shortness of breath, No SOB with excertion, No Wheezing, No Hemoptysis, No Pleuritic Pain, No Sputum, No Other Gastrointestinal: Nausea, Vomiting; No Abdominal Pain, No Diarrhea, No Constipation, No Melena, No Hematochezia, No Other Genitourinary: No Dysuria, No Frequency, No Incontinence, No Hematuria, No Retention, No Other Musculoskeletal: No other, No neck pain, No shoulder pain, No arm pain; back pain (bilateral flank pain); No hand pain, No leg pain, No foot pain Skin: No Rash, No Lesions, No Jaundice, No Bruising, No Other Objective Vitals Vital Signs Date Time Temp Pulse Resp B/P (MAP) Pulse Ox O2 Delivery O2 Flow Rate FiO2 02/19/25 05:00 97.6 76 17 100/62 (75) 95 97.6 02/18/25 20:00 Room Air* 0 21 Intake/Output Intake and Output 02/19/25 07:00 Intake Total 3120 ml Balance 3120 ml Intake Oral 1120 ml IV Total 2000 ml # Voids 10 # Bowel Movements 1 Medications Current Medications Medications Dose Ordered Sig/Lesvia Route Start Time Stop Time Status Last Admin Dose Admin Acetaminophen/ Hydrocodone Bitart 1 tab Q4HP PRN PO 02/17/25 13:00 02/19/25 08:18 1 TAB Ondansetron HCl 4 mg Q4HP PRN IV 02/17/25 13:00 Docusate Sodium 100 mg BIDPRN PRN PO 02/17/25 13:00 Acetaminophen 650 mg Q6HP PRN PO 02/17/25 13:00 02/18/25 22:59 650 MG Ceftriaxone Sodium 50 ml @ 100 mls/hr DAILY@09 IV 02/18/25 09:00 02/19/25 08:18 100 MLS/HR Metoclopramide HCl 10 mg Q6HR IV 02/17/25 18:00 Sodium Chloride 1,000 ml @ 150 mls/hr Q6H40M IV 02/18/25 13:45 02/19/25 03:43 150 MLS/HR Laboratory Results Laboratory Tests 02/19/25 05:11 Chemistry Test 02/19/25 05:11 Albumin 3.3 g/dL (3.2-4.8) Calcium Level 8.6 mg/dL (8.7-10.4) L Total Protein 5.6 g/dL (5.7-8.2) L LFT Test 02/19/25 05:11 Alanine Aminotransferase (ALT) 112 U/L (7-40) H Alkaline Phosphatase 109 U/L (46-116) Aspartate Amino Transferase (AST) 100 U/L (13-40) H Total Bilirubin 0.3 mg/dL (0.2-1.0) Urinalysis Test 02/17/25 07:36 Urine Color Colorless (Yellow) Urine Clarity Turbid (Clear) H Urine pH 5.5 (5.0-9.0) Urine Specific [place] 1.013 (1.001-1.035) Urine Protein Trace (Negative) H Urine Ketones 1+ (Negative) H Urine Blood 3+ /uL (Negative) H Urine Nitrite 2+ (Negative) H Urine Bilirubin Negative (Negative) Urine Urobilinogen Normal mg/dL (Negative) Urine Leukocyte Esterase Negative /uL (Negative) Urine RBC 802 /hpf (0 - 4) Urine Microscopic WBC 16 /HPF (0-5) H Urine Squamous Epithelial Cells Few /hpf (<5) Urine Bacteria Few /hpf (None Seen) H Urine Mucus Few (None Seen) Urine Yeast (Budding) Occasional /hpf (None Urine Glucose Normal mg/dL (Normal) Microbiology Microbiology Date/Time Source Procedure Growth Status 02/17/25 07:36 Voided Urine Urine Culture - Preliminary Resulted Labs and/or images reviewed: Labs reviewed by me, Image(s) reviewed by me Assessment/Plan Assessment/Plan Sepsis secondary to complicated UTI: Blood cultures pending, urine cultures growing Gram-negative rods Complicated UTI: Rocephin Possible acute pyelonephritis Hypertension Acute dehydration: IV fluids Feeling better today with less nausea Dario at bedside RN Isatu at bedside May DC home after the final urine culture result Plan discussed with: Patient My Orders Orders - RUBENS CARIAS MD Procedure Category Date Status Time Blood Culture SERVANDO 02/18/25 In Process 12:58 Sodium Chloride 0.9% PHA 02/18/25 In Process 13:45 Complete Blood Count LAB 02/20/25 Verified 04:00 Comprehensive LAB 02/20/25 Verified Metabolic Panel 04:00 Complete Blood Count LAB 02/21/25 Verified 04:00 Comprehensive LAB 02/21/25 Verified Metabolic Panel 04:00 Date of Service: Feb 19, 2025 Billing Provider: RUBENS CARIAS MD Common Visit Codes: [id number] INP/OBS CARE(HIGH) RUBENS CARIAS MD Feb 19, 2025 09:38
[2025-02-20 12:42] VITALS: BP 143/86; PULSE 75; RESP 16; TEMP 98.1; O2SAT 95
[2025-02-20] MEDS ORDERED: LEVO500T91 PO (14:43)
--- NOTE | 2025-02-20 14:45 | DVHDS2 ---
Discharge Summary Date of Admission Feb 17, 2025 at 12:56 Date of Discharge: Feb 20, 2025 Labs/Diagnostic Data: Laboratory Results Test 02/20/25 05:41 02/17/25 21:42 02/17/25 08:35 02/17/25 07:44 White Blood Count 7.8 10^3/uL (4.4-10.8) Red Blood Count 4.49 10^6/uL (4.0-5.20) Hemoglobin 13.6 g/dL (12.2-16.2) Hematocrit 39.2 % (36.0-46.0) Mean Corpuscular Volume 87.3 fL (80.0-100.0) Mean Corpuscular Hemoglobin 30.4 pg (28.0-32.0) Mean Corpuscular Hemoglobin Concent 34.8 g/dL (32.0-36.0) Red Cell Distribution Width 13.2 % (11.8-14.3) Platelet Count 241 10^3/uL (140-450) Mean Platelet Volume 7.2 fL (6.9-10.8) Neutrophils (%) (Auto) 67.8 % (37.0-80.0) Lymphocytes (%) (Auto) 25.7 % (10.0-50.0) Monocytes (%) (Auto) 4.8 % (0.0-12.0) Eosinophils (%) (Auto) 0.8 % (0.0-7.0) Basophils (%) (Auto) 0.9 % (0.0-2.0) Neutrophils # (Auto) 5.3 10 ^3/uL (1.6-8.6) Lymphocytes # (Auto) 2.0 10 ^3/uL (0.4-5.4) Monocytes # (Auto) 0.4 10 ^3/uL (0-1.3) Eosinophils # (Auto) 0.1 10 ^3/uL (0-0.8) Basophils # (Auto) 0.1 10 ^3/uL (0-0.2) Nucleated Red Blood Cells 0.0 % Sodium Level 144 mmol/L (136-145) Potassium Level 4.0 mmol/L (3.5-5.1) Chloride Level 109 mmol/L (98-107) Carbon Dioxide Level 27 mmol/L (20-31) Anion Gap 8 (5-15) Blood Urea Nitrogen 8 mg/dL (9-23) Creatinine 0.62 mg/dL (0.550-1.02) Glomerular Filtration Rate Calc 100 mL/min (>90) BUN/Creatinine Ratio 12.9 (10.0-20.0) Serum Glucose 76 mg/dL (74-106) Calcium Level 9.0 mg/dL (8.7-10.4) Total Bilirubin 0.3 mg/dL (0.2-1.0) Aspartate Amino Transferase (AST) 37 U/L (13-40) Alanine Aminotransferase (ALT) 79 U/L (7-40) Alkaline Phosphatase 107 U/L (46-116) Total Protein 5.7 g/dL (5.7-8.2) Albumin 3.6 g/dL (3.2-4.8) Lactic Acid Level 2.3 mmol/L (0.4-2.0) Influenza Type A Antigen Negative (Negative) Influenza Type B Antigen Negative (Negative) SARS-CoV-2 Antigen (Rapid) Negative (NEGATIVE) Troponin I High Sensitivity 4 ng/L (</=34) Hepatitis B Surface Antigen Negative (Negative) Hepatitis C Antibody Negative (Negative) Test 02/17/25 07:36 02/17/25 07:25 Urine Color Colorless (Yellow) Urine Clarity Turbid (Clear) Urine pH 5.5 (5.0-9.0) Urine Specific [place] 1.013 (1.001-1.035) Urine Protein Trace (Negative) Urine Ketones 1+ (Negative) Urine Blood 3+ /uL (Negative) Urine Nitrite 2+ (Negative) Urine Bilirubin Negative (Negative) Urine Urobilinogen Normal mg/dL (Negative) Urine Leukocyte Esterase Negative /uL (Negative) Urine RBC 802 /hpf (0 - 4) Urine Microscopic WBC 16 /HPF (0-5) Urine Squamous Epithelial Cells Few /hpf (<5) Urine Bacteria Few /hpf (None Seen) Urine Mucus Few (None Seen) Urine Yeast (Budding) Occasional /hpf (None Urine Glucose Normal mg/dL (Normal) POC Glucose 130 mg/dl (70-106) Other Laboratory Tests 02/20/25 05:41 Brief Hx & Hospital Course: [age] years old woman ended in ED with sepsis due to acute pyelonephritis. Blood cultures negative. Urine culture grew E coli. Bilateral urine culture shows pansensitive E coli. Patient is stable to be discharged home with p.o. Levaquin for five more days Condition at Discharge: Stable Final Diagnosis/Problems List sepsis due to uti from ecoli Discharge Disposition: Home Discharge Instruct/Medications Diet: Regular Activity: No Restrictions, As Tolerated Follow Up/Referral: Follow up with PCP in 1 week Scheduled Levofloxacin Hemihydrate (Levaquin 500 Mg), 500 MG PO DAILY Naproxen (Naproxen), 500 MG PO BID, (Reported) Scheduled PRN Cyclobenzaprine Hcl (Cyclobenzaprine Hcl), 1 TAB PO Q8HPRN PRN Hydrocodone-Acetaminophen (Hydrocodone Bitartrate/AC 5-325 mg), 1 TAB PO Q6HPRN PRN Discharge Statement: "Patient was advised to return to the ER or call 911 if any headaches, dizziness, shortness of breath, chest pain, abdominal pain, bleeding, fevers, or worsening of medical condition. Patient was counseled about treatment plan, medications, possible side effects, patientverbalized understanding. All questions were answered to the best of my ability. This discharge took greater then 30 minutes in planning, reviewing documentation, counseling the patient, and discussing with other team members." ASSESSMENT ASSESSMENT Assessment sepsis due to uti from [facility] Date of Service: Feb 20, 2025 Billing Provider: DAVID MAYER MD Common Visit Codes: [id number] DISCH DAY <30MIN DAVID MAYER MD Feb 20, 2025 14:45
[2025-02-20 15:44] VITALS: TEMP 36.7
[2025-02-20 17:00] VITALS: BP 147/79; PULSE 78; RESP 20; TEMP 98.1; O2SAT 95
== END 2025-02-20 16:10 | disposition home or self-care (01) | DRG 872 ==
LOC: ER 07:11 → OVERFLOW 12:56 → WEST WING 15:20
PROVIDERS: ADMIT Internal Medicine; ATTEND Internal Medicine
DX: A41.51 Sepsis due to Escherichia coli [E. coli] (principal); N10 Acute pyelonephritis; E86.0 Dehydration; I10 Essential (primary) hypertension; Z79.899 Other long term (current) drug therapy
CPT/HCPCS: 36415; 71045; 80053; 81001; 82962; 83605; 84484; 85025; 86803; 87040; 87086; 87088; 87186; 87340; 87426; 87804; 93005; 96361; 96365; G0378; J1885; J2405; J3490; J7060